=== PATIENT | male | born 1935 | race African-American/Black ===

== ENCOUNTER 2018-10-02 15:21 | Emergency (ER) | payer MEDICARE ==
[~2018-10-02] VITALS: Ht 182.9 cm; Wt 93.0 kg
[~2018-10-02 15:21] MED LIST: ASPIRIN EC81 MG PO; ATORVASTATIN CA40 MG PO; NOVOLOG FLEXPEN SC; PT UNSURE OF MEDS
[2018-10-02 15:53] LABS: IMMATURE GRANULOCYTES 0.3 % (0.0-5.0); MEAN CORPUSCULAR HGB 30.1 pG CALC (26.0-32.0); MEAN CORPUSCULAR HGB CONC 32.6 g/L CALC (32.0-36.0); NEUT# 1.84 thou/uL (1.82-7.42); RED BLOOD COUNT 2.99 mill/uL (4.70-6.10); RED CELL DISTRI WIDTH 19.3 % (11.5-15.5)
[2018-10-02 15:56] LABS: HEMATOCRIT 27.6 % (39.0-50.0); MEAN CELL VOLUME 92.3 fL CALC (80.0-100.0)
[2018-10-02 16:07] LABS: ALBUMIN 3.7 g/dL (3.2-5.0); BILIRUBIN, TOTAL 0.5 mg/dL (0.0-1.4)
[2018-10-02 16:08] LABS: CREATININE 4.7 mg/dL (0.7-1.3); POTASSIUM 4.1 mmol/l (3.5-5.1)
[2018-10-02 16:38] LABS: TSH, 3RD GENERATION 2.29 uIU/mL (0.47 - 4.68)
[2018-10-02] MEDS ORDERED: ULTRAM50 M1 PO (18:12)
[2018-10-02 18:15] VITALS: BP 122/61
== END 2018-10-02 18:25 | disposition home or self-care (01) ==
LOC: ED 15:21
PROVIDERS: Emergency Medicine
DX: M25.561 Pain in right knee (principal); R60.0 Localized edema; E11.9 Type 2 diabetes mellitus without complications; Z95.5 Presence of coronary angioplasty implant and graft; R41.0 Disorientation, unspecified; M79.604 Pain in right leg; M79.89 Other specified soft tissue disorders

== ENCOUNTER 2019-02-20 07:54 | Emergency (ER) | payer MEDICARE ==
[~2019-02-20] VITALS: Ht 182.9 cm; Wt 90.0 kg
[~2019-02-20 07:54] MED LIST changes: +ULTRAM50 M1 PO
== END 2019-02-20 08:46 | disposition home or self-care (01) ==
LOC: ED 07:54
DX: E11.649 Type 2 diabetes mellitus with hypoglycemia without coma (principal); E11.22 Type 2 diabetes mellitus with diabetic chronic kidney disease; N18.6 End stage renal disease; Z99.2 Dependence on renal dialysis; Z79.4 Long term (current) use of insulin

== ENCOUNTER 2019-09-18 16:03 | Emergency (ER) | payer MEDICARE ==
[2019-09-18 16:03] VITALS: BP 167/87
== END 2019-09-18 16:54 | disposition left against medical advice (07) ==
LOC: ED 16:03
DX: Z03.89 Encounter for observation for other suspected diseases and conditions ruled out (principal); E11.22 Type 2 diabetes mellitus with diabetic chronic kidney disease; N18.6 End stage renal disease; Z99.2 Dependence on renal dialysis; Z79.4 Long term (current) use of insulin; Z91.19 Patient's noncompliance with other medical treatment and regimen

== ENCOUNTER 2019-11-26 20:53 | Emergency (ER) | payer MEDICARE ==
[~2019-11-26] VITALS: Ht 182.9 cm; Wt 90.9 kg
[2019-11-26] MEDS ORDERED: BACTROBAN TOP ×2 (21:23)
[2019-11-26 21:50] VITALS: BP 152/69
== END 2019-11-26 21:50 | disposition home or self-care (01) ==
LOC: ED 20:53
DX: H60.13 Cellulitis of external ear, bilateral (principal); E11.9 Type 2 diabetes mellitus without complications

== ENCOUNTER 2019-11-29 12:06 | Emergency (ER) | payer MEDICARE ==
[~2019-11-29] VITALS: Ht 182.9 cm; Wt 90.9 kg
[~2019-11-29 12:06] MED LIST changes: +BACTROBAN TOP
[2019-11-29 12:53] LABS: HEMATOCRIT 33.5 % (39.0-50.0); HEMOGLOBIN 10.4 g/dl (14.0-18.0); IMMATURE GRANULOCYTES 0.2 % (0.0-5.0); MEAN CORPUSCULAR HGB 28.3 pG CALC (26.0-32.0); NEUT# 3.04 thou/uL (1.82-7.42); RED BLOOD COUNT 3.68 mill/uL (4.70-6.10)
[2019-11-29 13:03] LABS: CREATININE 4.9 mg/dL (0.7-1.3); POTASSIUM 4.2 mmol/l (3.5-5.1); TOTAL PROTEIN 8.1 g/dL (6.3-8.2)
[2019-11-29 13:15] LABS: BILIRUBIN, TOTAL 0.8 mg/dL (0.0-1.4)
[2019-11-29 14:29] VITALS: BP 156/70
== END 2019-11-29 14:20 | disposition left against medical advice (07) ==
LOC: ED 12:06
DX: R55 Syncope and collapse (principal); R51 Headache; M25.522 Pain in left elbow; E11.22 Type 2 diabetes mellitus with diabetic chronic kidney disease; N18.6 End stage renal disease; W19.XXXA Unspecified fall, initial encounter; Z99.2 Dependence on renal dialysis; Z91.19 Patient's noncompliance with other medical treatment and regimen; Z20.828 Contact with and (suspected) exposure to other viral communicable diseases

== ENCOUNTER 2019-11-30 12:49 | Emergency (ER) | payer MEDICARE ==
[~2019-11-30] VITALS: Ht 182.9 cm; Wt 75.0 kg
[2019-11-30 14:44] VITALS: BP 168/78
== END 2019-11-30 14:58 | disposition home or self-care (01) ==
LOC: ED 12:49
DX: S00.03XA Contusion of scalp, initial encounter (principal); J18.9 Pneumonia, unspecified organism; N18.6 End stage renal disease; W19.XXXA Unspecified fall, initial encounter; Z99.2 Dependence on renal dialysis; Z79.4 Long term (current) use of insulin

== ENCOUNTER 2019-12-04 18:42 | Observation (INO) | payer MEDICARE ==
[~2019-12-04] VITALS: Ht 182.9 cm; Wt 91.0 kg
[2019-12-04 19:15] LABS: IMMATURE GRANULOCYTES 0.4 % (0.0-5.0); MEAN CELL VOLUME 93.3 fL CALC (80.0-100.0); MEAN CORPUSCULAR HGB 28.6 pG CALC (26.0-32.0); MEAN CORPUSCULAR HGB CONC 30.6 g/dL CAL (32.0-36.0); NEUT# 1.72 thou/uL (1.82-7.42); RED BLOOD COUNT 2.1 mill/uL (4.70-6.10); RED CELL DISTRI WIDTH 18.1 % (11.5-15.5)
[2019-12-04 19:24] LABS: ALBUMIN 3.7 g/dL (3.2-5.0); BILIRUBIN, TOTAL 0.9 mg/dL (0.0-1.4); POTASSIUM 3.9 mmol/l (3.5-5.1); TOTAL PROTEIN 7.8 g/dL (6.3-8.2)
[2019-12-04 19:26] LABS: CREATININE 6.6 mg/dL (0.7-1.3); D-DIMER 3.96 mg/L (0.19-0.60)
[2019-12-04 19:31] LABS: ACT PARTIAL THROMBO TIME 33.6 SECONDS (20.0-32.5); INTERNATIONAL NORMALIZED RATIO 1.2 RATIO (0.7-1.3); PROTHROMBIN TIME 12.1 SECONDS (9.0-12.5)
[2019-12-04 19:39] LABS: HEMATOCRIT 19.6 % (39.0-50.0)
[2019-12-04 21:14] LABS: HEMATOCRIT 35.9 % (39.0-50.0); IMMATURE GRANULOCYTES 0.2 % (0.0-5.0); MEAN CELL VOLUME 91.8 fL CALC (80.0-100.0); MEAN CORPUSCULAR HGB 28.4 pG CALC (26.0-32.0); MEAN CORPUSCULAR HGB CONC 30.9 g/dL CAL (32.0-36.0); NEUT# 2.92 thou/uL (1.82-7.42); RED BLOOD COUNT 3.91 mill/uL (4.70-6.10); RED CELL DISTRI WIDTH 17.9 % (11.5-15.5)
[2019-12-04 21:15] LABS: HEMOGLOBIN 11.1 g/dl (14.0-18.0)
[2019-12-05 04:00] VITALS: BP 154/75
[2019-12-05 08:14] VITALS: BP 187/84
[2019-12-05 10:03] LABS: URINE BILIRUBIN - DIPSTICK NEGATIVE (NEGATIVE); URINE BLOOD DIPSTICK NEGATIVE (NEGATIVE); URINE COLOR YELLOW; URINE GLUCOSE - DIPSTICK 100 mg/dL (NEGATIVE); URINE KETONE NEGATIVE (NEGATIVE); URINE LEUK ESTERASE NEGATIVE (NEGATIVE); URINE NITRITE - DIPSTICK NEGATIVE (Negative); URINE PROTEIN - DIPSTICK 100 mg/dL (NEG-TRACE); URINE SPECIFIC GRAVITY 1.015; URINE UROBILINOGEN - DIPSTICK 0.2 E.U./dL (0.2)
[2019-12-05 10:06] LABS: URINE EPITHELIAL CELLS FEW EPI/hpf (0-FEW); URINE MUCUS MODERATE hpf (NONE-FEW)
[2019-12-05] MEDS ORDERED: COREG25 MG PO (12:58)
[2019-12-05] MEDS ORDERED: VITAMIN D3400 UNI2 PO (12:59)
[2019-12-05] MEDS ORDERED: PLAVIX75 MG PO (12:59)
[2019-12-05] MEDS ORDERED: NEURONTIN300 MG PO (13:00)
[2019-12-05] MEDS ORDERED: DIALYVIT2 PO (13:00)
[2019-12-05] MEDS ORDERED: GUAIFENESIN400 MG PO (13:01)
[2019-12-05] MEDS ORDERED: PRESERVISION ARED1 PO (13:02)
[2019-12-05] MEDS ORDERED: ISOSORBIDE MONO60 MG PO (13:02)
[2019-12-05] MEDS ORDERED: NOVOLOG FLEXPEN SC ×3 (13:03→13:04)
[2019-12-05] MEDS ORDERED: RENAGEL 800MG800 MG PO (13:03)
[2019-12-05] MEDS ORDERED: ZITHROMAX250 MG PO ×2 (14:46)
== END 2019-12-05 16:00 | disposition home or self-care (01) ==
LOC: ED 18:42 → ED-I 19:21 → ED 22:54 → ED-I 22:55
PROVIDERS: Emergency Medicine; ADMIT Internal Medicine; ATTEND Internal Medicine
DX: E11.649 Type 2 diabetes mellitus with hypoglycemia without coma (principal); J18.9 Pneumonia, unspecified organism; E11.22 Type 2 diabetes mellitus with diabetic chronic kidney disease; I12.0 Hypertensive chronic kidney disease with stage 5 chronic kidney disease or end stage renal disease; N18.6 End stage renal disease; Z99.2 Dependence on renal dialysis; Z79.4 Long term (current) use of insulin; Z20.828 Contact with and (suspected) exposure to other viral communicable diseases

== ENCOUNTER 2019-12-15 06:41 | Emergency (ER) | payer MEDICARE ==
[~2019-12-15] VITALS: Ht 182.9 cm; Wt 89.0 kg
[~2019-12-15 06:41] MED LIST changes: +COREG25 MG PO; +DIALYVIT2 PO; +GUAIFENESIN400 MG PO; +ISOSORBIDE MONO60 MG PO; +NEURONTIN300 MG PO; +PLAVIX75 MG PO; +PRESERVISION ARED1 PO; +RENAGEL 800MG800 MG PO; +VITAMIN D3400 UNI2 PO; +ZITHROMAX250 MG PO
[2019-12-15 07:05] LABS: HEMATOCRIT 30.7 % (39.0-50.0); HEMOGLOBIN 9.4 g/dl (14.0-18.0); IMMATURE GRANULOCYTES 0.2 % (0.0-5.0); MEAN CELL VOLUME 91.4 fL CALC (80.0-100.0); MEAN CORPUSCULAR HGB CONC 30.6 g/dL CAL (32.0-36.0); NEUT# 3.23 thou/uL (1.82-7.42); RED BLOOD COUNT 3.36 mill/uL (4.70-6.10); RED CELL DISTRI WIDTH 17.7 % (11.5-15.5)
[2019-12-15 07:23] LABS: ALBUMIN 3.8 g/dL (3.2-5.0); BILIRUBIN, TOTAL 0.6 mg/dL (0.0-1.4); MAGNESIUM 2.2 mg/dL (1.6-2.3); POTASSIUM 4.2 mmol/l (3.5-5.1); TOTAL PROTEIN 7.3 g/dL (6.3-8.2)
[2019-12-15 07:28] LABS: ACT PARTIAL THROMBO TIME 29.6 SECONDS (20.0-32.5); CREATININE 7.6 mg/dL (0.7-1.3); INTERNATIONAL NORMALIZED RATIO 1.2 RATIO (0.7-1.3)
[2019-12-15 10:10] VITALS: BP 140/65
== END 2019-12-15 10:42 | disposition home or self-care (01) ==
LOC: ED 06:41
DX: E11.649 Type 2 diabetes mellitus with hypoglycemia without coma (principal); E11.22 Type 2 diabetes mellitus with diabetic chronic kidney disease; N18.6 End stage renal disease; Z99.2 Dependence on renal dialysis; Z79.4 Long term (current) use of insulin; Z20.828 Contact with and (suspected) exposure to other viral communicable diseases

== ENCOUNTER 2020-03-04 21:58 | Emergency (ER) | payer OTHER, MEDICARE ==
[~2020-03-04] VITALS: Ht 182.9 cm; Wt 89.0 kg
[2020-03-04 22:53] LABS: POTASSIUM 4.1 mmol/l (3.5-5.1)
[2020-03-04 22:58] LABS: CREATININE 8.3 mg/dL (0.7-1.3)
[2020-03-05 00:40] VITALS: BP 146/60
== END 2020-03-05 00:40 | disposition home or self-care (01) | DRG 639 ==
LOC: ED 21:58
PROVIDERS: Family Medicine
DX: E11.649 Type 2 diabetes mellitus with hypoglycemia without coma (principal); E11.22 Type 2 diabetes mellitus with diabetic chronic kidney disease; N18.6 End stage renal disease; Z99.2 Dependence on renal dialysis; T38.3X6A Underdosing of insulin and oral hypoglycemic [antidiabetic] drugs, initial encounter; Z91.128 Patient's intentional underdosing of medication regimen for other reason; Z79.4 Long term (current) use of insulin

== ENCOUNTER 2020-06-12 06:18 | Emergency (ER) | payer MEDICARE ==
[~2020-06-12] VITALS: Ht 182.9 cm; Wt 90.0 kg
[2020-06-12 06:54] LABS: HEMATOCRIT 31.9 % (39.0-50.0); HEMOGLOBIN 9.8 g/dl (14.0-18.0); IMMATURE GRANULOCYTES 0.3 % (0.0-5.0); MEAN CELL VOLUME 95.8 fL CALC (80.0-100.0); MEAN CORPUSCULAR HGB 29.4 pG CALC (26.0-32.0); MEAN CORPUSCULAR HGB CONC 30.7 g/dL CAL (32.0-36.0); NEUT# 3.61 thou/uL (1.82-7.42); RED BLOOD COUNT 3.33 mill/uL (4.70-6.10); RED CELL DISTRI WIDTH 15.5 % (11.5-15.5)
[2020-06-12 07:17] LABS: ACT PARTIAL THROMBO TIME 28.2 SECONDS (20.0-32.5); INTERNATIONAL NORMALIZED RATIO 1.1 RATIO (0.7-1.3); PROTHROMBIN TIME 11.2 SECONDS (9.0-12.5)
[2020-06-12 07:31] LABS: ALBUMIN 3.8 g/dL (3.2-5.0); ALKALINE PHOSPHATASE 141 u/l (38-126); BILIRUBIN, TOTAL 0.8 mg/dL (0.0-1.4); BUN 64 mg/dL (8-23); CHLORIDE 101 mmol/l (95-108); ETHYL ALCOHOL 0 mg/dl (0-30); LIPASE 144 u/l (23-300); MAGNESIUM 2.1 mg/dL (1.6-2.3); SGOT/AST 32 u/l (19-48); SODIUM 136 mmol/l (137-146); TOTAL PROTEIN 7.8 g/dL (6.3-8.2)
[2020-06-12 07:34] LABS: BUN/CREATININE RATIO 5 (12-20 (CALC)); GFR 4 ML/MIN (>=60 (CALC)); GFR FOR AFR.AMER. 5 ML/MIN (>=60 (CALC))
[2020-06-12 07:35] LABS: ANION GAP 20 (6-22 (CALC)); CARBON DIOXIDE 21 mmol/l (22-30); CREATININE 11.7 mg/dL (0.7-1.3); POTASSIUM 6.3 mmol/l (3.5-5.1)
[2020-06-12 10:43] VITALS: BP 129/79
== END 2020-06-12 10:43 ==
LOC: ED 06:18
DX: R41.82 Altered mental status, unspecified (principal); J18.9 Pneumonia, unspecified organism; E87.5 Hyperkalemia; E11.22 Type 2 diabetes mellitus with diabetic chronic kidney disease; N18.6 End stage renal disease; Z99.2 Dependence on renal dialysis; Z86.74 Personal history of sudden cardiac arrest; Z20.822 Contact with and (suspected) exposure to COVID-19

== ENCOUNTER 2020-08-06 08:53 | Emergency (ER) | payer MEDICARE ==
[2020-08-06 11:14] VITALS: BP 132/62
[2020-08-06] MEDS ORDERED: ASPIRIN81 MG PO (13:02)
[2020-08-06] MEDS ORDERED: NORVASC5 M1 PO (13:02)
[2020-08-06] MEDS ORDERED: LIPITOR20 M1 PO (13:03)
[2020-08-06] MEDS ORDERED: CARVEDILOL6.25 MG PO (13:03)
[2020-08-06] MEDS ORDERED: CLOPIDOGREL75 MG PO (13:04)
[2020-08-06] MEDS ORDERED: GABAPENTIN100 MG PO (13:06)
[2020-08-06] MEDS ORDERED: HUMALOG KW100 UNIT/M SC ×3 (13:08→13:09)
[2020-08-06] MEDS ORDERED: RENVELA800 MG PO (13:09)
== END 2020-08-06 11:15 | disposition home or self-care (01) ==
LOC: ED 08:53
DX: Z03.89 Encounter for observation for other suspected diseases and conditions ruled out (principal); E11.22 Type 2 diabetes mellitus with diabetic chronic kidney disease; N18.6 End stage renal disease; Z99.2 Dependence on renal dialysis; Z79.4 Long term (current) use of insulin; E16.2 Hypoglycemia, unspecified; E11.649 Type 2 diabetes mellitus with hypoglycemia without coma; I25.10 Atherosclerotic heart disease of native coronary artery without angina pectoris; Z20.822 Contact with and (suspected) exposure to COVID-19

== ENCOUNTER 2020-08-06 12:23 | Emergency (ER) | payer MEDICARE ==
[2020-08-06 12:50] LABS: HEMATOCRIT 26.3 % (39.0-50.0); HEMOGLOBIN 8.1 g/dl (14.0-18.0); IMMATURE GRANULOCYTES 0.2 % (0.0-5.0); MEAN CELL VOLUME 93.3 fL CALC (80.0-100.0); MEAN CORPUSCULAR HGB 28.7 pG CALC (26.0-32.0); MEAN CORPUSCULAR HGB CONC 30.8 g/dL CAL (32.0-36.0); NEUT# 2.83 thou/uL (1.82-7.42); RED BLOOD COUNT 2.82 mill/uL (4.70-6.10); RED CELL DISTRI WIDTH 17.2 % (11.5-15.5)
[2020-08-06] MEDS ORDERED: NORVASC5 M1 PO (13:02)
[2020-08-06] MEDS ORDERED: ASPIRIN81 MG PO (13:02)
[2020-08-06] MEDS ORDERED: CARVEDILOL6.25 MG PO (13:03)
[2020-08-06] MEDS ORDERED: LIPITOR20 M1 PO (13:03)
[2020-08-06] MEDS ORDERED: CLOPIDOGREL75 MG PO (13:04)
[2020-08-06] MEDS ORDERED: GABAPENTIN100 MG PO (13:06)
[2020-08-06] MEDS ORDERED: HUMALOG KW100 UNIT/M SC ×3 (13:08→13:09)
[2020-08-06] MEDS ORDERED: RENVELA800 MG PO (13:09)
[2020-08-06 13:33] LABS: ALBUMIN 3.8 g/dL (3.2-5.0); BILIRUBIN, TOTAL 0.7 mg/dL (0.0-1.4); TOTAL PROTEIN 8.4 g/dL (6.3-8.2)
[2020-08-06 13:34] LABS: CREATININE 9.2 mg/dL (0.7-1.3)
[2020-08-06 14:35] VITALS: BP 130/78
== END 2020-08-06 14:50 ==
LOC: ED 12:23
PROVIDERS: Emergency Medicine
DX: E11.649 Type 2 diabetes mellitus with hypoglycemia without coma (principal); E11.22 Type 2 diabetes mellitus with diabetic chronic kidney disease; N18.6 End stage renal disease; I25.10 Atherosclerotic heart disease of native coronary artery without angina pectoris; Z99.2 Dependence on renal dialysis; Z79.4 Long term (current) use of insulin; Z20.822 Contact with and (suspected) exposure to COVID-19

== ENCOUNTER 2020-08-28 06:33 | Emergency (ER) | payer MEDICARE ==
[~2020-08-28 06:33] MED LIST changes: +ASPIRIN81 MG PO; +CARVEDILOL6.25 MG PO; +CLOPIDOGREL75 MG PO; +GABAPENTIN100 MG PO; +HUMALOG KW100 UNIT/M SC; +LIPITOR20 M1 PO; +NORVASC5 M1 PO; +RENVELA800 MG PO
[2020-08-28 08:01] LABS: HEMATOCRIT 26.2 % (39.0-50.0); HEMOGLOBIN 8.2 g/dl (14.0-18.0); IMMATURE GRANULOCYTES 0.4 % (0.0-5.0); MEAN CORPUSCULAR HGB 28.5 pG CALC (26.0-32.0); MEAN CORPUSCULAR HGB CONC 31.3 g/dL CAL (32.0-36.0); NEUT# 2.84 thou/uL (1.82-7.42); RED BLOOD COUNT 2.88 mill/uL (4.70-6.10); RED CELL DISTRI WIDTH 17.5 % (11.5-15.5)
[2020-08-28 08:12] LABS: ALBUMIN 3.8 g/dL (3.2-5.0); BILIRUBIN, TOTAL 0.7 mg/dL (0.0-1.4); TOTAL PROTEIN 8.5 g/dL (6.3-8.2)
[2020-08-28 08:21] LABS: CREATININE 10.4 mg/dL (0.7-1.3); POTASSIUM 6.4 mmol/l (3.5-5.1)
[2020-08-28 08:42] LABS: ACT PARTIAL THROMBO TIME 29.6 SECONDS (20.0-32.5); INTERNATIONAL NORMALIZED RATIO 1.3 RATIO (0.7-1.3); PROTHROMBIN TIME 12.7 SECONDS (9.0-12.5)
[2020-08-28 14:34] VITALS: BP 123/63
--- NOTE | 2020-08-30 13:46 | NUR ---
BLOOD CULTURE PRELIMINARY RESULTS WAS FAXED OVER TO [facility] ON 08/30/20 TO MARY @ [phone].
--- NOTE | 2020-08-31 10:12 | NUR ---
SENT OVER FINAL BLOOD CULTURE RESULTS TO MARY @ [phone]. SENT FAX TO [facility] IN [place].
== END 2020-08-28 14:35 ==
LOC: ED 06:33
DX: S72.114A Nondisplaced fracture of greater trochanter of right femur, initial encounter for closed fracture (principal); J18.9 Pneumonia, unspecified organism; E87.5 Hyperkalemia; E11.22 Type 2 diabetes mellitus with diabetic chronic kidney disease; N18.6 End stage renal disease; W06.XXXA Fall from bed, initial encounter; Y92.092 Bedroom in other non-institutional residence as the place of occurrence of the external cause; Z99.2 Dependence on renal dialysis; Z79.4 Long term (current) use of insulin; Z20.822 Contact with and (suspected) exposure to COVID-19
CPT/HCPCS: J1956